=== PATIENT | male | born 1995 | race Caucasian/White ===

== ENCOUNTER 2023-11-05 14:11 | Emergency (ER) | payer BC ==
[2023-11-05] MEDS ORDERED: Lactated Ringers 1,000 ML IV ONE (14:54)
[2023-11-05 15:08] LABS: BASOPHILS ABSOLUTE AUTO 0.1 K/mm3 (0.0-0.2); BASOPHILS PERCENT AUTO 0.4 % (0.0-1.0); EOSINOPHILS ABSOLUTE AUTO 0.2 K/mm3 (0.0-0.4); EOSINOPHILS PERCENT AUTO 1.8 % (0.0-6.0); HEMATOCRIT 41.2 % (42.0-52.0); HEMOGLOBIN 13.8 gm/dl (14.0-18.0); IMMATURE GRAN ABSOLUTE AUTO 0.06 K/mm3 (0.00-0.05); IMMATURE GRAN PERCENT AUTO 0.5 % (0.0-0.4); LYMPHOCYTES ABSOLUTE AUTO 1.1 K/mm3 (1.0-4.8); LYMPHOCYTES PERCENT AUTO 8.9 % (24.0-44.0); MEAN CORPUSCULAR HEMOGLOBIN 29.4 pg (28.0-32.0); MEAN CORPUSCULAR HGB CONC 33.5 g/dl (32.0-36.0); MEAN CORPUSCULAR VOLUME 87.8 fl (83.0-99.0); MEAN PLATELET VOLUME 8.3 fl (9.4-12.4); MONOCYTES ABSOLUTE AUTO 1.3 K/mm3 (0.0-0.8); MONOCYTES PERCENT AUTO 10.3 % (0.0-8.0); NEUTROPHILS ABSOLUTE AUTO 9.7 K/mm3 (1.8-7.7); NEUTROPHILS PERCENT AUTO 78.1 % (41.0-71.0); PLATELET COUNT,PLT 269 K/mm3 (150-400); RED BLOOD CELL COUNT 4.69 M/mm3 (4.52-5.90); WHITE BLOOD CELL COUNT,WBC 12.43 K/mm3 (3.9-11.3)
[2023-11-05 15:39] LABS: A/G RATIO 0.7 (1-2); ALBUMIN 3.1 g/dl (3.4-5.0); ANION GAP 13.4 (5-15); BILIRUBIN TOTAL 0.3 mg/dL (0.2-1.0); BUN/CREATININE RATIO 8.3 (14-18); CREATININE 1.2 mg/dL (0.7-1.3); EST CRCL DRUG DOSING (CG) 97.61 mL/min; POTASSIUM,K 3.4 mEq/L (3.5-5.1); PROTEIN TOTAL,TP 7.4 g/dl (6.4-8.2)
[2023-11-05 15:41] LABS: C-REACTIVE PROTEIN 15.4 mg/dL (<1.0)
[2023-11-05] MEDS ORDERED: Iopamidol 612 MG/ML 100 ML Bottle IVPUSH ONE (15:42)
[2023-11-05] MEDS: Sodium Chloride 0.9% 10 ML Syringe FLUSH PRN ×2 (15:43→16:53)
[2023-11-05 15:46] LABS: CORONAVIRUS COVID-19 NAA NEGATIVE (NEGATIVE); INFLUENZA A NAA NEGATIVE (NEGATIVE)
[2023-11-05] MEDS ORDERED: methylPREDNISolone Sodium Succinate 125 MG/2 ML SDV IVPUSH ONE (16:39)
== END 2023-11-05 17:10 | disposition home or self-care (01) ==
LOC: JD.ED 14:11
DX: K52.9 Noninfective gastroenteritis and colitis, unspecified (principal); N28.89 Other specified disorders of kidney and ureter; Z20.822 Contact with and (suspected) exposure to COVID-19
CPT/HCPCS: 0240U; 36415; 74177; 80053; 80307; 83605; 85025; 86140; 96361; 96374; 99284; J2930; J3490; J7120; Q9967